=== PATIENT | female | born 1965 | race African-American/Black ===

== ENCOUNTER 2017-02-18 14:07 | Outpatient (CLI) | payer BC ==
[~2017-02-18] VITALS: Ht 157.5 cm; Wt 72.7 kg
[~2017-02-18 14:07] MED LIST: HYDR12.58 PO; LEVO175T2 PO
[2017-02-18 14:18] VITALS: BP 130/85; PULSE 114; RESP 18; Ht 157.5 cm; Wt 72.7 kg
[2017-02-18] MEDS ORDERED: ALPR1TAB2 PO (14:30)
[2017-02-18] MEDS ORDERED: SYN112 PO (14:30)
[2017-02-18] MEDS ORDERED: DULO60CA59 PO (14:30)
[2017-02-18] MEDS ORDERED: BENA1TAB13 PO (14:30)
[2017-02-18] MEDS ORDERED: ZOLP10TA PO (14:30)
[2017-02-18] MEDS ORDERED: CALC0.5C4 PO (14:30)
--- NOTE | 2017-02-18 18:00 | CONS ---
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 There are certainly more than 4 or 5 polyps within her stomach and the largest of which is more than 1 to 1.5 cm. This is a rather new diagnosis for the patient, and we are still awaiting further characterization with pathology report of the most recent evaluation with endoscopic ultrasound with Dr. Reaves at [facility]. My initial reaction to her diagnosis is that of careful followup with interval 6-month upper endoscopy plus or minus endoscopic ultrasound evaluation. The patient could certainly benefit from a thorough multidisciplinary discussion, and given the rarity of this process, it may be helpful to have this information reviewed by more than one institution. Recommended treatment in this setting would be to consider antrectomy in order to decrease gastrin production, and there is some evidence that this procedure would lead to involution of these polyps. I agree with Dr. Pearson that this is not a type 2 or type 3 gastrin neuroendocrine disease since it does not have the other features of these processes, but it would be important to follow up on Martha-Giordano syndrome and gastrin levels and MEN workup to make sure. I also recommended that the patient strongly consider genetic testing with a thorough genetic counseling consultation to be done that would help her as well as her family. I reviewed all this in detail with the patient and answered all her questions to the best of my ability. I believe that the patient understood and agreed with the plans. With above assessment, I have recommended the followin. Multidisciplinary tumor board presentation. 2. Followup on pathology results from 01/2017 endoscopic ultrasound EMR. 3. Six-month interval endoscopic evaluation. 4. Consideration for antrectomy as a more definitive management, perhaps after the 6-month followup endoscopy. 5. Genetic counseling with genetic testing. Thank you again for allowing us to participate in the care of this very pleasant lady and I am certain her wonderful family. If there are any questions , please feel free to call me at [phone]. TOTAL VISIT TIME: 45 minutes, of which more than half was spent in face-to- face discussion with the patient as well as coordination of care between multiple physicians and providers. 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 Largest polyp was removed using snare electrocautery, and there was evidence of gastritis with mucosal erythema and edema throughout the antrum and the body without ulcerations. 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 Tumor displayed infiltration of the muscularis mucosa and extended to the mucosal and deep trans -sectional margins. There was no lymphovascular invasion. Mitotic rate was 1 to 0 per high-power field. Tumor corresponded to WHO grade I. IHC staining showed strongly positive synaptophysin, positive chromogranin, weakly positive NSE, positive CD56, negative CK20 and negative CK7 in the tumor cells. She also underwent endoscopic ultrasound evaluation with Dr. Reaves on 2016 where a 15 x 9 mm hypoechoic lesion arising from the third versus second layer of the gastric wall in the gastric antrum was found and was removed with EMR. The EMR defect was closed with 3 clips. Multiple subcentimeter nodules in gastric body and fundus with appearance suggestive of carcinoid tumor were found, and biopsies were obtained. Rest of the endoscopic evaluation and ultrasound of the area was unremarkable. COMORBIDITIES: 1. Above-mentioned recent diagnosis of neuroendocrine disease of the stomach with multiple polyps. 2. BMI 29.3. 3. Hyperthyroidism. 4. Status post surgical hypothyroidism. 5. Undifferentiated connective tissue disease. 6. Hypertension. 7. Status post thyroidectomy at age 6. 8. ALLERGIC TO FISH PRODUCTS WITH SHORTNESS OF BREATH. 9. Strong family history of cancer with the patient's mother dying at age 62 with stomach cancer (different than neuroendocrine disease), maternal aunt with kidney cancer, maternal uncle with pancreatic cancer, maternal grandfather with leukemia and maternal uncle with liver cancer. HISTORY OF PRESENT ILLNESS: The patient is a very pleasant 52-year-old lady with above-mentioned comorbidities and history who we were kindly asked to consult regarding management of gastric neuroendocrine disease. The patient herself does not have any major symptoms. Her initial symptoms included nausea and vomiting that led to the upper endoscopy that discovered the lesions. She does not report any changes in appetite or change in weight. No other major symptoms. ALLERGIES: FISH PRODUCTS WITH SHORTNESS OF BREATH as mentioned above. MEDICATIONS: 1. Xanax. 2. Benazepril. 3. Calcitriol. 4. Duloxetine. 5. Levothyroxine. 6. Ambien. SOCIAL HISTORY: The patient is , and they have no children together. 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 No reported smoking, unusual drinking or intravenous drug use. FAMILY HISTORY: As above with history of renal, pancreatic, leukemia, liver cancer and stomach cancer in the family. REVIEW OF SYSTEMS: Other than the above mentioned, there are no other pertinent positives or pertinent negatives in a complete 14-point review of systems. PHYSICAL EXAMINATION: GENERAL: The patient appears to be a very pleasant lady of non - descent, appearing stated age, sitting in a chair comfortably and in no acute distress. BMI is 29.3. VITAL SIGNS: Temperature 98.1, blood pressure 130/85, pulse 114, respiratory rate 18, pulse oximetry 97% on room air. HEENT: Normocephalic and atraumatic. Extraocular muscles and hearing are grossly intact bilaterally and symmetrically. Sclerae are nonicteric. Oral cavity is clear; oral mucosa appeared to be pink and moist. Dentition: fair. NECK: Supple. There is no lymphadenopathy or JVD. There is no submental, submandibular or supraclavicular lymphadenopathy. CHEST: Rises symmetrically with each breath; patient is breathing comfortably. There are no audible wheezes, rales or rhonchi on the gross exam. HEART: Pulse is regular and palpable on the right wrist. Capillary refill was normal. Carotid pulses are palpable bilaterally and symmetrically in the neck. EXTREMITIES: Lower extremities contain no pitting edema around the ankles bilaterally and symmetrically. ABDOMEN: Abdomen is soft, nontender and nondistended. There are no peritoneal signs or guarding. No evidence of ascites, organomegaly, caput medusae, engorged subcutaneous veins, or other abnormalities. SKIN: Appears to be pink and feels warm to touch. NEUROLOGIC: Awake, alert, and follows commands appropriately. LABORATORY VALUES: Dated 11/2016 showed white blood cell count 3.8, platelet count 220. Electrolytes were normal. Albumin 4.0, creatinine 1.13. TSH 0.36. IMAGING: The patient's CT of the abdomen and pelvis without contrast 2016 showed no gastric abnormality, no perigastric or epigastric pathologic adenopathy. No mass, lymphadenopathy or focal acute inflammatory process identified and no bowel thickening or dilatation or evidence of bowel obstruction identified. Results of the endoscopic ultrasound were reviewed above. Pathology report pending. Dictated By: DELMAR DE JESUS/SOY Conf#: [id number] DID#: [id number] CC: LUCI JOHNS MD; Al Reaves; Roosevelt Pearson; Lovely Hernandez;*EndCC* MTDD
== END 2017-02-18 17:00 | disposition home or self-care (01) ==
LOC: HPC 14:07
PROVIDERS: ATTEND Transplant Surgery
DX: D13.1 Benign neoplasm of stomach (principal); K31.7 Polyp of stomach and duodenum; E03.9 Hypothyroidism, unspecified; I10 Essential (primary) hypertension
CPT/HCPCS: G0463